=== PATIENT | female | born 1990 | race Caucasian/White ===

== ENCOUNTER 2018-02-23 08:51 | Emergency (ER) | payer OTHER ==
--- NOTE | 2018-02-23 09:07 | EDM.PDOC ---
ED HPI GENERAL MEDICAL PROBLEM - General Chief Complaint: Eye Problems Stated Complaint: RT EYE Time Seen by Provider: 02/23/18 09:02 Source of Information: Reports: Patient, RN History Limitations: Reports: No Limitations - History of Present Illness INITIAL COMMENTS - FREE TEXT/NARRATIVE: C/O Rt eye irritation with yellow/green matting. Denies visual change. No other Sx's. Pt's daughter has eye infection currently. Duration: Constant Location: Reports: Other (Rt eye) Severity: Moderate Improves with: Reports: None Worsens with: Reports: None Associated Symptoms: Reports: No Other Symptoms - Related Data Allergies Allergy/AdvReac Type Severity Reaction Status Date / Time candesartan Allergy Tachycardia Verified 02/23/18 09:19 capsaicin Allergy Anaphylactic Verified 02/23/18 09:19 Shock cephalexin [From Keflex] Allergy Hives Verified 02/23/18 09:19 clindamycin Allergy Vomiting Verified 02/23/18 09:19 prednisone Allergy Swelling Verified 02/23/18 09:19 propranolol Allergy Bradycardia Verified 02/23/18 09:19 topiramate [From Topamax] Allergy Shaking Verified 02/23/18 09:19 trazodone Allergy Vomiting Verified 02/23/18 09:19 Home Meds: Home Meds Rizatriptan Benzoate [Rizatriptan] 10 mg PO PRN 02/23/18 [History] 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 ED EXAM GENERAL W FULL EYE - Physical Exam Exam: See Below Exam Limited By: No Limitations General Appearance: Alert, WD/WN, No Apparent Distress Eye Exam: Right Eye: Conjunctival Injection, Left Eye: Normal Inspection, Bilateral Eye: EOMI, PERRL Eyelids: Bilateral: Normal Appearance Conjunctiva & Sclera: Right: Conjunctival Edema, Injected Cornea Exam: Bilateral: Normal Appearance Extraocular Movements: Bilateral: Intact Pupils: Normal Accommodation Pupillary Size: Bilateral: 4 mm Pupillary Reaction: Bilateral: Brisk Ears: Normal External Exam, Normal Canal, Hearing Grossly Normal, Normal TMs Nose: Normal Inspection, Normal Mucosa, No Blood Throat/Mouth: Normal Inspection, Normal Lips, Normal Teeth, Normal Gums, Normal Oropharynx, Normal Voice, No Airway Compromise Head: Atraumatic, Normocephalic Neck: Normal Inspection, Supple, Non-Tender, Full Range of Motion. No: Lymphadenopathy (L), Lymphadenopathy (R) Respiratory/Chest: No Respiratory Distress Neurological: Alert, Oriented, CN II-XII Intact, Normal Cognition, Normal Gait, No Motor/Sensory Deficits Psychiatric: Normal Mood Skin Exam: Warm, Dry, Intact, Normal Color, No Rash Course - Vital Signs Last Recorded V/S: Last Vital Signs Temp 36.9 C 02/23/18 09:12 Pulse 102 H 02/23/18 09:12 Resp 16 02/23/18 09:12 BP 114/75 02/23/18 09:12 Pulse Ox 100 02/23/18 09:12 - Orders/Labs/Meds Meds: Medications Discontinued Medications Generic Name Dose Route Start Last Admin Trade Name Freq PRN Reason Stop Dose Admin Gentamicin Sulfate 1 ml 02/23/18 09:35 02/23/18 09:41 Garamycin 0.3% Ophth Soln EYERT 02/23/18 09:36 1 ml ONETIME ONE Administration Departure - Departure Time of Disposition: 09:39 Disposition: Home, Self-Care 01 Condition: Good Clinical Impression: Conjunctivitis Qualifiers: Conjunctivitis type: acute Acute conjunctivitis type: bacterial Laterality: right Qualified Code(s): H10.31 - Unspecified acute conjunctivitis, right eye - Discharge Information Instructions: Bacterial Conjunctivitis, [id number] Forms: ED Department Discharge Additional Instructions: Gentamicin Ophthalmic Solution 0.3%: 1 drop in affected eye(s) four times a day for five days. Follow up in clinic if not improving in 3 to 5 days.
[2018-02-23] MEDS ORDERED: Gentamicin 0.3% Ophth Soln 5 ML Bottle EYERT ONE (09:35)
== END 2018-02-23 10:04 | disposition home or self-care (01) ==
LOC: DL.ED 08:51
DX: H10.31 Unspecified acute conjunctivitis, right eye (principal); Z88.1 Allergy status to other antibiotic agents; Z88.8 Allergy status to other drugs, medicaments and biological substances
CPT/HCPCS: 99282; A9270

== ENCOUNTER 2019-12-08 14:47 | Emergency (ER) | payer BC, OTHER ==
[2019-12-08] MEDS ORDERED: Ketorolac 30 MG/ML SDV IM ONE (15:43)
[2019-12-08] MEDS ORDERED: Ondansetron 4 MG/2 ML SDV IVPUSH ONE (15:43)
[2019-12-08] MEDS ORDERED: Sodium Chloride 0.9% 1,000 ML IV ONE (15:43)
[2019-12-08] MEDS ORDERED: diphenhydrAMINE 50 MG/ML SDV IVPUSH ONE (15:44)
--- NOTE | 2019-12-08 16:54 | EDM.PDOC ---
Scribed by Meli Bo 12/08/19 [id number] for Jayme Carney NP ED HPI GENERAL MEDICAL PROBLEM - General Chief Complaint: Headache Stated Complaint: HEADACHE Time Seen by Provider: 12/08/19 15:33 Source of Information: Reports: Patient, RN, RN Notes Reviewed History Limitations: Reports: No Limitations - History of Present Illness INITIAL COMMENTS - FREE TEXT/NARRATIVE: Patient is a 29-year-old female who presents to ER with chronic migraine that started at 1500 yesterday. She tried Triptan that she had at twice with no relief. She has left sided facial pain. It is throbbing. She has had nausea but no vomiting, blurry vision or photophobia. No head injury, trauma or fall. She took a Benadryl 50 mg and Tylenol 650 mg at 6:00 A.M. this morning. She rates her pain 8/10 and describes it as throbbing. She denies any known triggers at this time. She denies any fevers, chills, shortness of breath, numbness or tingling, palpitations and chest pain. Denies any diarrhea, neurological changes. Nothing makes it worse or better. Patient took her last 2 Triptan yesterday and ran out. Her PCP not present in clinic today. Onset Date: 12/07/19 Duration: Day(s):, Constant Location: Reports: Head Quality: Reports: Ache Severity: Mild Improves with: Reports: None Worsens with: Reports: None Associated Symptoms: Reports: No Other Symptoms Headache Pain Score (Numeric/FACES): 8 - Related Data Allergies Allergy/AdvReac Type Severity Reaction Status Date / Time candesartan Allergy Tachycardia Verified 12/08/19 15:07 capsaicin Allergy Anaphylactic Verified 12/08/19 15:07 Shock cephalexin [From Keflex] Allergy Hives Verified 12/08/19 15:07 clindamycin Allergy Vomiting Verified 12/08/19 15:07 phenazopyridine [From Azo] Allergy Rash Verified 12/08/19 15:07 prednisone Allergy Swelling Verified 12/08/19 15:07 propranolol Allergy Bradycardia Verified 12/08/19 15:07 topiramate [From Topamax] Allergy Shaking Verified 12/08/19 15:07 trazodone Allergy Vomiting Verified 12/08/19 15:07 Home Meds: Home Meds Rizatriptan Benzoate [Rizatriptan] 10 mg PO ASDIRECTED PRN 02/23/18 [History] Ondansetron [Zofran] 4 mg PO Q6H PRN 12/08/19 [History] Zolpidem [Ambien] 5 mg PO ASDIRECTED PRN 12/08/19 [History] Past Medical History HEENT History: Reports: None Cardiovascular History: Reports: None Respiratory History: Reports: None Gastrointestinal History: Reports: None Genitourinary History: Reports: None 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 Musculoskeletal History: Reports: Other (See Below) Other Musculoskeletal History: 2 knee surgeries Neurological History: Reports: None Psychiatric History: Reports: None Endocrine/Metabolic History: Reports: None Hematologic History: Reports: None Immunologic History: Reports: None Oncologic (Cancer) History: Reports: None Dermatologic History: Reports: None - Infectious Disease History Infectious Disease History: Reports: Chicken Pox - Past Surgical History Head Surgeries/Procedures: Reports: None Social & Family History - Family History Family Medical History: Noncontributory - Tobacco Use Smoking Status *Q: Never Smoker Second Hand Smoke Exposure: No - Caffeine Use Caffeine Use: Reports: Soda - Recreational Drug Use Recreational Drug Use: No - Living Situation & Occupation Living situation: Reports: with Family ED ROS GENERAL - Review of Systems Review Of Systems: Comprehensive ROS is negative, except as noted in HPI. - Physical Exam Exam: See Below Exam Limited By: No Limitations General Appearance: Alert, WD/WN, Moderate Distress Eye Exam: Left Eye: Other (left sided facial pain), Bilateral Eye: EOMI, Normal Inspection, PERRL Ears: Normal External Exam, Normal Canal, Hearing Grossly Normal, Normal TMs Nose: Normal Inspection, Normal Mucosa, No Blood Throat/Mouth: Normal Inspection, Normal Lips, Normal Teeth, Normal Gums, Normal Oropharynx, Normal Voice, No Airway Compromise Head Exam: Atraumatic, Normocephalic Neck: Normal Inspection, Supple, Non-Tender, Full Range of Motion Respiratory/Chest: No Respiratory Distress, Lungs Clear, Normal Breath Sounds, No Accessory Muscle Use, Chest Non-Tender Cardiovascular: Normal Peripheral Pulses, Regular Rate, Rhythm, No Edema, No Gallop, No JVD, No Murmur, No Rub GI/Abdominal: Normal Bowel Sounds, Soft, Non-Tender, No Organomegaly, No Distention, No Abnormal Bruit, No Mass (Female) Exam: Deferred Rectal (Female) Exam: Deferred Neuro Exam (Abbreviated): Alert, Oriented, CN II-XII Intact, Normal Cognition, Normal Gait, Normal Reflexes, No Motor/Sensory Deficits Psychiatric: Normal Affect, Normal Mood Skin Exam: Warm, Dry, Intact, Normal Color, No Rash Course - Vital Signs Last Recorded V/S: Last Vital Signs Temp 98.4 F 12/08/19 15:00 Pulse 109 H 12/08/19 15:00 Resp 16 12/08/19 15:00 BP 125/86 12/08/19 15:00 Pulse Ox 97 12/08/19 15:00 - Orders/Labs/Meds Meds: Medications Discontinued Medications Generic Name Dose Route Start Last Admin Trade Name Trinoq PRN Reason Stop Dose Admin Diphenhydramine HCl 25 mg 12/08/19 15:44 12/08/19 16:08 Benadryl IVPUSH 12/08/19 15:45 25 mg ONETIME ONE Administration Sodium Chloride 1,000 mls @ 1,000 mls/hr 12/08/19 15:43 12/08/19 16:05 Normal Saline IV 12/08/19 16:42 1,000 mls/hr .BOLUS ONE Administration Ketorolac Tromethamine 30 mg 12/08/19 15:43 12/08/19 16:17 Toradol IM 12/08/19 15:44 30 mg ONETIME ONE Administration Ondansetron HCl 4 mg 12/08/19 15:43 12/08/19 16:06 Zofran IVPUSH 12/08/19 15:44 4 mg ONETIME ONE Administration - Re-Assessments/Exams Free Text/Narrative Re-Assessment/Exam: Migraine cocktail administered with 1 liter normal saline IV bolus. Patient reports significant relief. Encouraged to push fluids, rest and follow up with PCP. 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 Push fluids and rest. Follow up in clinic. Sepsis Event Note - Evaluation Sepsis Screening Result: No Definite Risk - Focused Exam Vital Signs: Vital Signs Temp Pulse Resp BP Pulse Ox 12/08/19 15:00 98.4 F 109 H 16 125/86 97 Date Exam was Performed: 12/08/19 Time Exam was Performed: 16:54 I have read and agree with the documentation that has been completed regarding this visit. By signing this record, I attest that the documentation was completed in my physical presence and is an accurate record of the encounter.
== END 2019-12-08 17:00 | disposition home or self-care (01) ==
LOC: DL.ED 14:47
DX: G43.909 Migraine, unspecified, not intractable, without status migrainosus (principal); Z88.8 Allergy status to other drugs, medicaments and biological substances; Z88.1 Allergy status to other antibiotic agents; Z88.5 Allergy status to narcotic agent
CPT/HCPCS: 96361; 96372; 96374; 96375; 99283; J1200; J1885; J2405; J7030

== ENCOUNTER 2021-03-03 00:24 | Emergency (ER) | payer BC, OTHER ==
[2021-03-03] MEDS ORDERED: Ondansetron 4 MG Tab.DIS PO ONE (00:38)
[2021-03-03] MEDS ORDERED: GI Cocktail Oral Solution 30 ML PO ONE (00:38)
--- NOTE | 2021-03-03 01:18 | EDM.PDOC ---
ED HPI GENERAL MEDICAL PROBLEM - General Chief Complaint: Gastrointestinal Problem Stated Complaint: CHEST PAIN,WRIST SURGERY TODAY,CANT WALK Time Seen by Provider: 03/03/21 00:55 Source of Information: Reports: Patient, RN History Limitations: Reports: No Limitations - History of Present Illness INITIAL COMMENTS - FREE TEXT/NARRATIVE: ED with c/o left epigastric pain since 10pm. Slight nausea no vomiting. recent surgery earlier today for removal ganglion cyst. Tylenol #3 at 2100 for pain. Took medication with some food. Clindalmycin during surgery via IV. Has had vomiting with po clindamycin. Bilateral Epigastric Pain Score (Numeric/FACES): 10 - Related Data Allergies Allergy/AdvReac Type Severity Reaction Status Date / Time candesartan Allergy Tachycardia Verified 03/03/21 01:25 capsaicin Allergy Anaphylactic Verified 03/03/21 01:25 Shock cephalexin [From Keflex] Allergy Hives Verified 03/03/21 01:25 clindamycin Allergy Vomiting Verified 03/03/21 01:25 phenazopyridine [From Azo] Allergy Rash Verified 03/03/21 01:25 prednisone Allergy Swelling Verified 03/03/21 01:25 propranolol Allergy Bradycardia Verified 03/03/21 01:25 topiramate [From Topamax] Allergy Shaking Verified 03/03/21 01:25 trazodone Allergy Vomiting Verified 03/03/21 01:25 Home Meds: Home Meds Rizatriptan Benzoate [Rizatriptan] 10 mg PO ASDIRECTED PRN 02/23/18 [History] Ondansetron [Zofran] 4 mg PO Q6H PRN 12/08/19 [History] Zolpidem [Ambien] 5 mg PO ASDIRECTED PRN 12/08/19 [History] Past Medical History HEENT History: Reports: None Cardiovascular History: Reports: None Respiratory History: Reports: None Gastrointestinal History: Reports: None Genitourinary History: Reports: None 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 Musculoskeletal History: Reports: Other (See Below) Other Musculoskeletal History: 2 knee surgeries Neurological History: Reports: None Psychiatric History: Reports: None Endocrine/Metabolic History: Reports: None Hematologic History: Reports: None Immunologic History: Reports: None Oncologic (Cancer) History: Reports: None Dermatologic History: Reports: None - Infectious Disease History Infectious Disease History: Reports: Chicken Pox - Past Surgical History Head Surgeries/Procedures: Reports: None Social & Family History - Family History Family Medical History: No Pertinent Family History - Caffeine Use Caffeine Use: Reports: Soda - Living Situation & Occupation Living situation: Reports: with Family ED ROS GENERAL - Review of Systems Review Of Systems: Comprehensive ROS is negative, except as noted in HPI. ED EXAM, GI/ABD - Physical Exam Exam: See Below Exam Limited By: No Limitations General Appearance: Alert, Mild Distress Eyes: Bilateral: EOMI Ears: Normal External Exam Nose: Normal Inspection Throat/Mouth: Normal Inspection Head: Atraumatic, Normocephalic Neck: Normal Inspection Respiratory/Chest: No Respiratory Distress, Lungs Clear, Normal Breath Sounds Cardiovascular: Regular Rate, Rhythm GI/Abdominal Exam: Tender (left epigastric), Abnormal Bowel Sounds (hyperactive). No: No Distention Back Exam: Normal Inspection Extremities: Normal Inspection, Normal Range of Motion Neurological: Alert, Oriented, Normal Cognition Psychiatric: Normal Affect, Normal Mood Skin Exam: Warm, Dry, Intact Course - Vital Signs Last Recorded V/S: Last Vital Signs Temp 97.8 F 03/03/21 00:50 Pulse 124 H 03/03/21 00:50 Resp 16 03/03/21 00:50 BP 130/85 03/03/21 00:50 Pulse Ox 100 03/03/21 00:50 - Orders/Labs/Meds Meds: Medications Discontinued Medications Generic Name Dose Route Start Last Admin Trade Name Freq PRN Reason Stop Dose Admin Al Hydroxide/Mg Hydroxide 30 ml 03/03/21 00:38 03/03/21 00:43 Gi Cocktail Oral Solution 30 Ml PO 03/03/21 00:39 30 ml ONETIME ONE Administration Ondansetron HCl 4 mg 03/03/21 00:38 03/03/21 00:43 Ondansetron 4 Mg Tab.Dis PO 03/03/21 00:39 4 mg ONETIME ONE Administration - Re-Assessments/Exams Free Text/Narrative Re-Assessment/Exam: symptoms improved following GI cocktail. Departure - Departure Time of Disposition: 01:16 Disposition: Home, Self-Care 01 Condition: Good Clinical Impression: Epigastric pain - Discharge Information *PRESCRIPTION DRUG MONITORING PROGRAM REVIEWED*: No *COPY OF PRESCRIPTION DRUG MONITORING REPORT IN PATIENT ZORAIDA: No Instructions: Abdominal Pain, Adult, [id number] Referrals: Jeannette Saavedra PA-C [Primary Care Provider] - Forms: ED Department Discharge Additional Instructions: bland diet pepcid one twice daily as needed for upset stomach take pain medications with food limit spicy foods, and caffeine clinic follow up this week if symptoms not resolving Sepsis Event Note (ED) - Evaluation Sepsis Screening Result: No Definite Risk - Focused Exam Vital Signs: Vital Signs Temp Pulse Resp BP Pulse Ox 03/03/21 00:50 97.8 F 124 H 16 130/85 100
== END 2021-03-03 01:28 | disposition home or self-care (01) ==
LOC: DL.ED 00:24
DX: R10.13 Epigastric pain (principal); Z88.1 Allergy status to other antibiotic agents; Z88.8 Allergy status to other drugs, medicaments and biological substances; Z88.5 Allergy status to narcotic agent
CPT/HCPCS: 99283; A9270-GY

== ENCOUNTER 2021-07-07 08:18 | Emergency (ER) | payer OTHER ==
--- NOTE | 2021-07-07 08:45 | EDM.PDOC ---
<Wei Ruiz C - Last Filed: 07/07/21 10:00> ED HPI GENERAL MEDICAL PROBLEM - General Stated Complaint: ALLERIC REACTION / TROUBLE BREATHING /TOOK BENADRY Time Seen by Provider: 07/07/21 08:41 Source of Information: Reports: Patient History Limitations: Reports: No Limitations - History of Present Illness INITIAL COMMENTS - FREE TEXT/NARRATIVE: 30 y/o F c/o tightness in her throat/chest, and difficulty speaking since 730 pm last night. Pt reports she is allergic to capsasin and had a pizza last night that set off her allergies. She states she took 50mg liquid benadryl last night about 730 pm and 50 mg benadryl again this morning at 730 am. Has no reported urticaria, erythema, NVD. Denies dizziness, vision prob, abd pn, diff voiding, extremity pain, . Duration: Hour(s): Location: Reports: Neck, Chest Throat Pain Score (Numeric/FACES): 5 - Related Data Allergies Allergy/AdvReac Type Severity Reaction Status Date / Time candesartan Allergy Tachycardia Verified 07/07/21 08:44 capsaicin Allergy Anaphylactic Verified 07/07/21 08:44 Shock cephalexin [From Keflex] Allergy Hives Verified 07/07/21 08:44 clindamycin Allergy Vomiting Verified 07/07/21 08:44 phenazopyridine [From Azo] Allergy Rash Verified 07/07/21 08:44 prednisone Allergy Swelling Verified 07/07/21 08:44 propranolol Allergy Bradycardia Verified 07/07/21 08:44 topiramate [From Topamax] Allergy Shaking Verified 07/07/21 08:44 trazodone Allergy Vomiting Verified 07/07/21 08:44 Home Meds: Home Meds Rizatriptan Benzoate [Rizatriptan] 10 mg PO ASDIRECTED PRN 02/23/18 [History] Zolpidem [Ambien] 5 mg PO ASDIRECTED PRN 12/08/19 [History] Erenumab-Aooe [Aimovig Autoinjector] 1 injection SUBCUT ASDIRECTED 07/07/21 [History] Past Medical History - Past Health History Medical/Surgical History: Denies Medical/Surgical History HEENT History: Reports: None Cardiovascular History: Reports: None Respiratory History: Reports: None Gastrointestinal History: Reports: None Genitourinary History: Reports: None FOUNDRY HAND History: Reports: Other (See Below) Other FOUNDRY HAND History: c sec Musculoskeletal History: Reports: Other (See Below) Other Musculoskeletal History: 2 knee surgeries Neurological History: Reports: None Psychiatric History: Reports: None Endocrine/Metabolic History: Reports: None Hematologic History: Reports: None Immunologic History: Reports: None Oncologic (Cancer) History: Reports: None Dermatologic History: Reports: None - Infectious Disease History Infectious Disease History: Reports: Chicken Pox - Past Surgical History Head Surgeries/Procedures: Reports: None Social & Family History - Family History Family Medical History: No Pertinent Family History - Caffeine Use Caffeine Use: Reports: Soda - Living Situation & Occupation Living situation: Reports: with Family ED ROS ALLERGIC REACTION - Review of Systems Review Of Systems: Comprehensive ROS is negative, except as noted in HPI. ED EXAM GENERAL NO PERIP PULSE - Physical Exam Exam: See Below Exam Limited By: No Limitations General Appearance: Alert, Anxious Eye Exam: Bilateral Eye: PERRL Ears: Normal External Exam, Normal Canal, Hearing Grossly Normal, Normal TMs Nose: Normal Inspection, Normal Mucosa, No Blood Throat/Mouth: Normal Inspection, Normal Lips, Normal Teeth, Normal Gums, Normal Oropharynx, Normal Voice, No Airway Compromise Head: Atraumatic, Normocephalic Neck: Supple, Non-Tender Respiratory/Chest: No Respiratory Distress, Lungs Clear, Normal Breath Sounds, No Accessory Muscle Use, Chest Non-Tender, Other (No wheezes or stridor) Cardiovascular: Tachycardia GI/Abdominal: Soft, Non-Tender (Female) Exam: Deferred Back Exam: Normal Inspection, Full Range of Motion Extremities: Normal Inspection, Normal Range of Motion, Non-Tender, Normal Capillary Refill, No Pedal Edema Neurological: Alert, Oriented Skin Exam: Warm, Dry, Intact #1 Interpretation EKG Date: 07/07/21 Time: 09:00 Rhythm: Other (sinus tach) [place]: Normal P-Wave: Present QRS: Normal ST-T: Normal QT: Normal Course - Re-Assessments/Exams Free Text/Narrative Re-Assessment/Exam: 07/07/21 09:55 After pt received her neb she expressed resolution in symptoms. She is still not able to speak loudly but is in no resp distress. She refused a CXR and is ready to go home. Departure - Departure Time of Disposition: 09:57 Disposition: Home, Self-Care 01 Condition: Good Clinical Impression: Food sensitivity with gastrointestinal symptoms - Discharge Information *PRESCRIPTION DRUG MONITORING PROGRAM REVIEWED*: Not Applicable *COPY OF PRESCRIPTION DRUG MONITORING REPORT IN PATIENT ZORAIDA: Not Applicable Instructions: Food Allergy, [id number] Forms: ED Department Discharge Additional Instructions: Continue to avoid capsaicin. If any symptoms or concerns develop contact your primary care facility or return to the ER. . <Fuentes Fermin - Last Filed: 07/07/21 13:49> Course - Vital Signs Last Recorded V/S: Last Vital Signs Temp 98 F 07/07/21 08:38 Pulse 104 H 07/07/21 08:58 Resp 14 07/07/21 08:38 BP 126/97 H 07/07/21 08:51 Pulse Ox 98 07/07/21 08:58 - Orders/Labs/Meds Labs: Laboratory Tests 07/07/21 07/07/21 07/07/21 Range/Units 08:53 08:53 08:53 WBC (5.0-10.0) 10^3/uL RBC (4.2-5.4) 10^6/uL Hgb (12.0-16.0) g/dL Hct (37.0-47.0) % MCV (80-100) fL MCH (27.0-34.0) pg MCHC (33.0-35.0) g/dL Plt Count (150-450) 10^3/uL Neut % (Auto) (42.2-75.2) % Lymph % (Auto) (20.5-50.1) % [place] % (Auto) (2-8) % Eos % (Auto) (1.0-3.0) % Baso % (Auto) (0.0-1.0) % Sodium (136-145) mmol/L Potassium (3.5-5.1) mmol/L Chloride (98-107) mmol/L Carbon Dioxide (21-32) mmol/L Anion Gap (7-13) mEq/L BUN (7-18) mg/dL Creatinine (0.55-1.02) mg/dL Est Cr Clr Drug Dosing mL/min Estimated GFR (MDRD) BUN/Creatinine Ratio (No establ ref range) Glucose (70-99) mg/dL Calcium (8.5-10.1) mg/dL Total Bilirubin (0.2-1.0) mg/dL AST (15-37) U/L ALT (14-59) U/L Alkaline Phosphatase (46-116) U/L Total Protein (6.4-8.2) g/dL Albumin (3.4-5.0) g/dL Globulin Albumin/Globulin Ratio Urine Color Yellow (YELLOW) Urine Appearance Clear (CLEAR) Urine pH 5.5 (5.0-9.0) Ur Specific [place] 1.015 (1.005-1.030) Urine Protein Negative (NEGATIVE) Urine Glucose (UA) Negative (NEGATIVE) Urine Ketones Negative (NEGATIVE) Urine Occult Blood Small H (NEGATIVE) Urine Nitrite Negative (NEGATIVE) Urine Bilirubin Negative (NEGATIVE) Urine Urobilinogen 0.2 (0.2-1.0) mg/dL Ur Leukocyte Esterase Negative (NEGATIVE) Urine RBC 0-5 (0-5) /HPF Urine WBC 0-5 (0-5/HPF) /HPF Ur Epithelial Cells Moderate H (NOT SEEN) /HPF Urine Bacteria Moderate H (0-FEW/HPF) /HPF Urine HCG, Qual Negative Urine Opiates Screen Negative (NEGATIVE) Ur Oxycodone Screen Negative (NEGATIVE) Urine Methadone Screen Negative (NEGATIVE) Ur Barbiturates Screen Negative (NEGATIVE) U Tricyclic Antidepress Negative (NEGATIVE) Ur Phencyclidine Scrn Negative (NEGATIVE) Ur Amphetamine Screen Negative (NEGATIVE) U Methamphetamines Scrn Negative (NEGATIVE) Urine MDMA Screen Negative (NEGATIVE) U Benzodiazepines Scrn Negative (NEGATIVE) Urine Cocaine Screen Negative (NEGATIVE) U Marijuana (THC) Screen Negative (NEGATIVE) 07/07/21 07/07/21 Range/Units 08:57 08:57 WBC 8.9 (5.0-10.0) 10^3/uL RBC 5.10 (4.2-5.4) 10^6/uL Hgb 14.8 (12.0-16.0) g/dL Hct 43.8 (37.0-47.0) % MCV 85.9 (80-100) fL MCH 29.0 (27.0-34.0) pg MCHC 33.8 (33.0-35.0) g/dL Plt Count 241 (150-450) 10^3/uL Neut % (Auto) 75.3 H (42.2-75.2) % Lymph % (Auto) 18.9 L (20.5-50.1) % [place] % (Auto) 4.2 (2-8) % Eos % (Auto) 1.5 (1.0-3.0) % Baso % (Auto) 0.1 (0.0-1.0) % Sodium 140 (136-145) mmol/L Potassium 3.6 (3.5-5.1) mmol/L Chloride 104 (98-107) mmol/L Carbon Dioxide 28 (21-32) mmol/L Anion Gap 11.6 (7-13) mEq/L BUN 7 (7-18) mg/dL Creatinine 0.87 (0.55-1.02) mg/dL Est Cr Clr Drug Dosing 68.53 mL/min Estimated GFR (MDRD) > 60 BUN/Creatinine Ratio 8.0 (No establ ref range) Glucose 97 (70-99) mg/dL Calcium 9.3 (8.5-10.1) mg/dL Total Bilirubin 0.4 (0.2-1.0) mg/dL AST 20 (15-37) U/L ALT 35 (14-59) U/L Alkaline Phosphatase 71 (46-116) U/L Total Protein 8.3 H (6.4-8.2) g/dL Albumin 4.4 (3.4-5.0) g/dL Globulin 3.9 Albumin/Globulin Ratio 1.1 Urine Color (YELLOW) Urine Appearance (CLEAR) Urine pH (5.0-9.0) Ur Specific [place] (1.005-1.030) Urine Protein (NEGATIVE) Urine Glucose (UA) (NEGATIVE) Urine Ketones (NEGATIVE) Urine Occult Blood (NEGATIVE) Urine Nitrite (NEGATIVE) Urine Bilirubin (NEGATIVE) Urine Urobilinogen (0.2-1.0) mg/dL Ur Leukocyte Esterase (NEGATIVE) Urine RBC (0-5) /HPF Urine WBC (0-5/HPF) /HPF Ur Epithelial Cells (NOT SEEN) /HPF Urine Bacteria (0-FEW/HPF) /HPF Urine HCG, Qual Urine Opiates Screen (NEGATIVE) Ur Oxycodone Screen (NEGATIVE) Urine Methadone Screen (NEGATIVE) Ur Barbiturates Screen (NEGATIVE) U Tricyclic Antidepress (NEGATIVE) Ur Phencyclidine Scrn (NEGATIVE) Ur Amphetamine Screen (NEGATIVE) U Methamphetamines Scrn (NEGATIVE) Urine MDMA Screen (NEGATIVE) U Benzodiazepines Scrn (NEGATIVE) Urine Cocaine Screen (NEGATIVE) U Marijuana (THC) Screen (NEGATIVE) Meds: Medications Discontinued Medications Generic Name Dose Route Start Last Admin Trade Name Freq PRN Reason Stop Dose Admin Albuterol 2.5 mg 07/07/21 08:58 07/07/21 09:09 Albuterol 0.083% 2.5 Mg/3 Ml Neb Soln NEB 07/07/21 08:59 2.5 mg ONETIME ONE Administration - Re-Assessments/Exams Free Text/Narrative Re-Assessment/Exam: 07/07/21 13:49 I reviewed entire assessment and treatment plan of this patient. I agree with entire plan and treatment during this visit. Sepsis Event Note (ED) - Focused Exam Vital Signs: Vital Signs Temp Pulse Resp BP Pulse Ox Pulse Ox 07/07/21 08:58 104 H 98 07/07/21 08:51 126/97 H 07/07/21 08:38 98 F 112 H 14 146/112 H 100
[2021-07-07] MEDS ORDERED: Albuterol 0.083% 2.5 MG/3 ML Neb Soln NEB ONE (08:58)
[2021-07-07 09:12] LABS: AMPHETAMINES,URINE NEGATIVE (NEGATIVE); BARBITURATES,URINE NEGATIVE (NEGATIVE); BENZODIAZEPINE,URINE NEGATIVE (NEGATIVE); MDMA (ECSTASY), URINE NEGATIVE (NEGATIVE); METHADONE,URINE NEGATIVE (NEGATIVE); METHAMPHETAMINES,URINE NEGATIVE (NEGATIVE); OPIATES,URINE NEGATIVE (NEGATIVE); OXYCODONE,URINE NEGATIVE (NEGATIVE); PHENCYCLIDINE,URINE NEGATIVE (NEGATIVE); TCA,URINE NEGATIVE (NEGATIVE)
[2021-07-07 09:29] LABS: ANION GAP 11.6 mEq/L (7-13); CHLORIDE,CL 104 mmol/L (98-107); SODIUM,NA 140 mmol/L (136-145)
== END 2021-07-07 10:28 | disposition home or self-care (01) ==
LOC: DL.ED 08:18
DX: T78.1XXA Other adverse food reactions, not elsewhere classified, initial encounter (principal); Z88.1 Allergy status to other antibiotic agents; Z88.5 Allergy status to narcotic agent; Z88.8 Allergy status to other drugs, medicaments and biological substances; Z91.018 Allergy to other foods
CPT/HCPCS: 36415; 80053; 80305-QW; 81001; 81025; 85025; 93005; 94640; 99283-25; J7613-GY